=== PATIENT | male | born 1990 | race Hispanic/Latino ===

== ENCOUNTER 2019-07-08 18:51 | Emergency (ER) | payer SELFPAY ==
[2019-07-08] MEDS ORDERED: Bacitracin 1 PK ONE (21:23)
[2019-07-08] MEDS ORDERED: HYDROcodone/Acetaminophen 10/325 mg Tablet ONE (21:30)
== END 2019-07-08 21:40 | disposition home or self-care (01) ==
LOC: ERS 18:51
DX: L60.0 Ingrowing nail (principal)
CPT/HCPCS: 11750